=== PATIENT | male | born 2000 | race Caucasian/White ===

== ENCOUNTER 2020-03-27 13:19 | Emergency (ER) | payer MEDICAID, OTHER ==
[~2020-03-27] VITALS: Ht 170 cm; Wt 90.7 kg
[~2020-03-27 13:19] MED LIST: CEPH-506 PO; HYDR-3455 PO; z-pack PO
[2020-03-27 13:39] VITALS: BP 145/89
--- NOTE | 2020-03-27 13:46 | ED Chest Pain ---
General Stated Complaint: HIGH BP - 144/90 Source: patient Exam Limitations: no limitations History of Present Illness Date Seen by Provider: Mar 27, 2020 Time Seen by Provider: 13:40 Initial Comments To ER with reports of high blood pressure. He has had shortness of breath and a cough only upon first awakening in the mornings for the past 1.5 months. No f anibal or chills or headache. He thought that a cigarette and cup of coffee would help because it usually does. He checked his blood pressure and found it to be 144/90, his mother was alarmed and referred him to the emergency room. He has also been under increased stress lately following honorable discharge from the [employer], relationship difficulties and looking for a job. Timing/Duration: constant Severity/Quality: mild Radiation: no radiation Activities at Onset: none ASA po MICA PLATE LAYER: No NTG SL MICA PLATE LAYER: No Allergies and Home Medications Allergies Uncoded Allergies: SHELL FISH (Allergy, Mild, 11/15/14) Home Medications Amlodipine Besylate 2.5 Mg Tablet, 2.5 MG PO DAILY Prescribed by: ANNABELLE KOTHARI on 03/27/20 1347 Cephalexin 250 Mg Capsule, 250 MG PO TID Prescribed by: NOHEMI HERNANDEZ on 06/07/15 1215 Hydrocodone/Acetaminophen 1 Each Tablet, 1 EACH PO Q6H PRN for PAIN Prescribed by: NOHEMI HERNANDEZ on 06/07/15 1212 Pantoprazole Sodium 40 Mg Tablet.dr, 40 MG PO DAILY Prescribed by: ANNABELLE KOTHARI on 03/27/20 1347 Patient Home Medication List Home Medication List Reviewed: Yes Review of Systems Review of Systems Constitutional: see HPI EENTM: No Symptoms Reported Respiratory: See HPI Cardiovascular: See HPI, Chest Pain Gastrointestinal: No Symptoms Reported Genitourinary: No Symptoms Reported Musculoskeletal: no symptoms reported Skin: no symptoms reported Psychiatric/Neurological: No Symptoms Reported Endocrine: No Symptoms Reported Past Ewhopiy-Evuorg-Cfeqtz Hx Patient Social History Recent Foreign Travel: No Contact w/Someone Who Travel: No Seasonal Allergies Seasonal Allergies: No Past Medical History Reproductive Disorders: No Sexually Transmitted Disease: No HIV/AIDS: No Loss of Vision: Denies Hearing Impairment: Denies Adverse Reaction/Blood Tranf: No Physical Exam Vital Signs Vital Signs - First Documented 03/27/20 13:39 Temp 37.0 Pulse 82 Resp 16 B/P (MAP) 145/89 (107) Pulse Ox 100 O2 Delivery Room Air Capillary Refill : Height, Weight, BMI Height: 5'7.00" Weight: 164lbs. oz. 74.850729kd; BMI Method: General Appearance: No Apparent Distress, WD/WN, Obese HEENT: PERRL/EOMI, TMs Normal Neck: Full Range of Motion, Normal Inspection Respiratory: Normal Breath Sounds, No Accessory Muscle Use, No Respiratory Distress Cardiovascular: Regular Rate, Rhythm, Normal Peripheral Pulses Gastrointestinal: Normal Bowel Sounds, Non Tender, Soft Neurologic/Psychiatric: Alert, Oriented x3 Skin: Normal Color, Warm/Dry Progress/Results/Core Measures Results/Orders My Orders Orders - ANNABELLE KOTHARI APRN Ekg Tracing (03/27/20 13:39) Chest Pa/Lat (2 View) (03/27/20 13:39) Vital Signs/I&O 03/27/20 13:39 Temp 37.0 Pulse 82 Resp 16 B/P (MAP) 145/89 (107) Pulse Ox 100 O2 Delivery Room Air Departure Impression Primary Impression: GERD (gastroesophageal reflux disease) Qualified Codes: K21.9 - Gastro-esophageal reflux disease without esophagitis Additional Impressions: Stress Hypertension Qualified Codes: I10 - Essential (primary) hypertension Disposition: 01 HOME, SELF-CARE Condition: Stable Departure-Patient Inst. Decision time for Depature: 13:43 Referrals: YISSEL CENTENO MD,YEMI Justin MD NO,LOCAL PHYSICIAN (PCP) Primary Care Physician RONALDO SHAH CHAD C MD Patient Instructions: Acid Reflux and GERD in Adults (DC), High Blood Pressure (DC) Add. Discharge Instructions: 1. The blood pressure can be controlled by increasing exercise, losing weight, reducing caffeine intake, stop cigarette smoking. I'll give you a one-month prescription for acid reducers which should help the acid reflux that you are experiencing. We will also give him a low-dose blood pressure medication until you can make lifestyle changes (exercise increase, cigarette decrease) as those lifestyle changes will likely result in you not needing medication to control your blood pressure. Call one of the primary care providers listed on Sunday to make an appointment to be seen. Your blood pressure is no where near a dangerous zone but it does warrant treatment at your young age. Scripts Amlodipine Besylate (Amlodipine Besylate) 2.5 Mg Tablet 2.5 MG PO DAILY, #30 TAB Prov: ANNABELLE KOTHARI APRN 03/27/20 Pantoprazole Sodium (Protonix) 40 Mg Tablet.dr 40 MG PO DAILY, #30 TAB Prov: ANNABELLE KOTHARI APRN 03/27/20 ANNABELLE KOTHARI APRN Mar 27, 2020 13:46
[2020-03-27] MEDS ORDERED: AMLO2.5T4 PO (13:47)
[2020-03-27] MEDS ORDERED: PANT40TA2 PO (13:47)
--- NOTE | 2020-03-27 14:31 | Diagnostic Imaging Report ---
Indication: Chest pain with hypertension. Comparison: None. Discussion: Two views of the chest were obtained. Normal heart size. No consolidation, pleural fluid, or pneumothorax. No osseous abnormality. Impression: 1. Negative chest. Dictated by: Dictated on workstation # [id number]
== END 2020-03-27 14:07 | disposition home or self-care (01) ==
LOC: EDUNIT# 13:19 → ER 13:20
DX: K21.9 Gastro-esophageal reflux disease without esophagitis (principal); I10 Essential (primary) hypertension; F43.9 Reaction to severe stress, unspecified; E66.9 Obesity, unspecified; Z68.45 Body mass index [BMI] 70 or greater, adult
CPT/HCPCS: 71046; 93005

== ENCOUNTER 2021-01-01 04:49 | Emergency (ER) | payer SELFPAY ==
[~2021-01-01] VITALS: Ht 170.1 cm; Wt 90.0 kg
[~2021-01-01 04:49] MED LIST changes: +AMLO2.5T4 PO; +PANT40TA2 PO
--- NOTE | 2021-01-01 05:31 | ED General ---
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 Pt states that he went to lay down and drift off to sleep and felt like he was going into a euphoric state. Pt denies alcohol or drug use. Pt denies pain. Pt states that he drank a bunch of coffee at work. 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[employer] STATES HE ATE WHEN HE GOT HOME, AND THEN STARTED FEELING "NOT RIGHT" STATES HE STARTED TO FEEL LIKE HE WAS GOING TO PASS OUT, AND HE FELT LIKE HIS EYES KEPT ROLLING BACK IN HIS HEAD STATES HE FELT LIKE HE COULDN'T BREATHE \\ STATES HE STARTED SHAKING REAL BAD WHEN HE GOT HERE NO CHEST PAIN NO VISION CHANGES NO NAUSEA/VOMITING DENIES FEVER OR RECENT ILLNESS DENIES COUGH PT HAS NOT HAD COVID-19 VACCINE PT NEVER WEARS A MASK AT WORK, NOR ANYWHERE THE [employer] [facility] PT WORKS LIFTED ALL MASK AND SOCIAL DISTANCING RESTRICTIONS SEVERAL MONTHS AGO--BOTH FOR PATRONS AND STAFF. DENIES HISTORY OF SIMILAR DENIES ANY MEDICAL PROBLEMS STATES HE DRANK "A BUNCH" OF COFFEE TODAY--1 1/2 CUPS THIS MORNING, AND 2 CUPS AT WORK. DENIES ANY OTHER STIMULANTS DENIES DRUG USE PT HAS BEEN SEEN HERE FOR ANXIETY IN THE PAST--03/2020, AND WAS NOTED TO HAVE ELEVATED BP AT THAT TIME AND WAS GIVEN RX FOR BLOOD PRESSURE MEDICATION/AMLODIPINE DOES NOT APPEAR THAT PT EVER GOT THOSE PRESCRIPTIONS FILLED, NOR FOLLOWED UP WITH ANYONE PCP: [facility] (ZINA JENNINGS ) Allergies and Home Medications Allergies Uncoded Allergies: SHELL FISH (Allergy, Mild, 11/15/14) Home Medications Amlodipine Besylate 2.5 Mg Tablet, 2.5 MG PO DAILY Prescribed by: ANNABELLE KOTHARI on 03/27/20 1347 Cephalexin 250 Mg Capsule, 250 MG PO TID Prescribed by: NOHEMI HERNANDEZ on 06/07/15 1215 Hydrocodone/Acetaminophen 1 Each Tablet, 1 EACH PO Q6H PRN for PAIN Prescribed by: NOHEMI HERNANDEZ on 06/07/15 1212 Pantoprazole Sodium 40 Mg Tablet.dr, 40 MG PO DAILY Prescribed by: ANNABELLE KOTHARI on 03/27/20 1347 Patient Home Medication List Home Medication List Reviewed: Yes (XIOMARA ANTOINE MD) Review of Systems Review of Systems Constitutional: see HPI, dizziness EENTM: no symptoms reported Respiratory: see HPI Cardiovascular: no symptoms reported Gastrointestinal: no symptoms reported Genitourinary: no symptoms reported Musculoskeletal: no symptoms reported Skin: no symptoms reported Psychiatric/Neurological: See HPI, Anxiety Hematologic/Lymphatic: No Symptoms Reported Immunological/Allergic: no symptoms reported (ZINA JENNINGS DO) Past Mxswyjv-Gpdzgz-Ijwath Hx Patient Social History Tobacco Use?: Yes (SMOKED 1/2 PPD, QUIT RECENTLY) Tobacco type used: Cigarettes Smoking Status: Former Smoker Use of E-Cig and/or Vaping dev: Yes E-Cig or Vaping type used: Nicotine Use of E-Cig and/or Vaping Rolf: Former User Substance use?: Yes (USE MARIJUANA "ONE TIME" ) Substance type: Marijuana Alcohol Use?: No Pt feels they are or have been: No (ZINA JENNINGS DO) Immunizations Up To Date Influenza Vaccine Up-to-Date: No; Not Current (ZINA JENNINGS DO) Seasonal Allergies Seasonal Allergies: No (ZINA JENNINGS DO) Past Medical History Surgery/Hospitalization HX: INGUINAL HERNIA REPAIR X 2 Surgeries: Yes (inguinal hernias x2) Abdominal Respiratory: No Cardiac: Yes (HAS HAD ELEVATED BP IN ER AND BEEN PRESCRIBED MEDS, BUT DID NOT TAKE OR F/U) Neurological: No Reproductive Disorders: No Genitourinary: No Gastrointestinal: No Musculoskeletal: No Endocrine: No Loss of Vision: Denies Hearing Impairment: Denies Cancer: No Psychosocial: Yes Anxiety Integumentary: Yes (R ring finger lesion) Blood Disorders: No Adverse Reaction/Blood Tranf: No (ZINA JENNINGS DO) Physical Exam Vital Signs Vital Signs - First Documented 01/01/21 05:05 Temp 36.4 Pulse 134 Resp 24 B/P (MAP) 195/118 (143) Pulse Ox 98 O2 Delivery Room Air (XIOMARA ANTOINE MD) Vital Signs Capillary Refill : Less Than 3 Seconds (JOSE MIGUEL JENNINGSA Pino HYMAN) Height, Weight, BMI Height: 5'7.00" Weight: 164lbs. oz. 74.473796po; 31.00 BMI Method: General Appearance: No Apparent Distress, WD/WN, Anxious Neck: Normal Inspection Respiratory: Normal Breath Sounds, No Accessory Muscle Use, No Respiratory Distress Cardiovascular: No Edema, No Gallop, No JVD, No Murmur, Normal Peripheral Pulses, Tachycardia Gastrointestinal: Soft Extremity: Normal Inspection Neurologic/Psychiatric: Alert, Oriented x3, No Motor/Sensory Deficits, food concession manager II- XII Norm as Tested, Other (VERY ANXIOUS) Skin: Normal Color, Warm/Dry, Tattoos/Piercings (TATTOOS) (MICHAELAZINAAlvin Pringle DO) Progress/Results/Core Measures Suspected Sepsis SIRS Temperature: Pulse: 134 Respiratory Rate: 24 Laboratory Tests 01/01/21 05:20: White Blood Count 8.4 Blood Pressure 195 /118 Mean: 143 Laboratory Tests 01/01/21 05:20: Platelet Count 230, Total Bilirubin 0.7 (MICHAELAZINA Pino HYMAN) Results/Orders Lab Results Laboratory Tests Test 01/01/21 05:20 01/01/21 05:57 Range/Units White Blood Count 8.4 4.3-11.0 10^3/uL Red Blood Count 5.18 4.30-5.52 10^6/uL Hemoglobin 16.0 13.3-17.7 g/dL Hematocrit 45 40-54 % Mean Corpuscular Volume 86 80-99 fL Mean Corpuscular Hemoglobin 31 25-34 pg Mean Corpuscular Hemoglobin Concent 36 32-36 g/dL Red Cell Distribution Width 11.9 10.0-14.5 % Platelet Count 230 130-400 10^3/uL Mean Platelet Volume 10.3 9.0-12.2 fL Immature Granulocyte % (Auto) 1 % Neutrophils (%) (Auto) 42 42-75 % Lymphocytes (%) (Auto) 49 H 12-44 % Monocytes (%) (Auto) 5 0-12 % Eosinophils (%) (Auto) 3 0-10 % Basophils (%) (Auto) 1 0-10 % Neutrophils # (Auto) 3.5 1.8-7.8 10^3/uL Lymphocytes # (Auto) 4.1 H 1.0-4.0 10^3/uL Monocytes # (Auto) 0.4 0.0-1.0 10^3/uL Eosinophils # (Auto) 0.3 0.0-0.3 10^3/uL Basophils # (Auto) 0.1 0.0-0.1 10^3/uL Immature Granulocyte # (Auto) 0.0 0.0-0.1 10^3/uL Sodium Level 137 135-145 MMOL/L Potassium Level 3.5 L 3.6-5.0 MMOL/L Chloride Level 102 98-107 MMOL/L Carbon Dioxide Level 23 21-32 MMOL/L Anion Gap 12 5-14 MMOL/L Blood Urea Nitrogen 15 7-18 MG/DL Creatinine 1.28 0.60-1.30 MG/DL Estimat Glomerular Filtration Rate 70 BUN/Creatinine Ratio 12 Glucose Level 157 H 70-105 MG/DL Calcium Level 9.6 8.5-10.1 MG/DL Corrected Calcium 8.5-10.1 MG/DL Magnesium Level 1.9 1.6-2.4 MG/DL Total Bilirubin 0.7 0.1-1.0 MG/DL Aspartate Amino Transf (AST/SGOT) 48 H 5-34 U/L Alanine Aminotransferase (ALT/SGPT) 132 H 0-55 U/L Alkaline Phosphatase 64 40-136 U/L B-Type Natriuretic Peptide < 10.0 <100.0 PG/ML Total Protein 8.2 6.4-8.2 GM/DL Albumin 4.6 H 3.2-4.5 GM/DL TSH Eddy Testing 2.88 0.35-4.94 UIU/ML Serum Alcohol < 10 <10 MG/DL SARS-CoV-2 RNA (RT-PCR) Not Detected Not Detecte Urine Opiates Screen NEGATIVE NEGATIVE Urine Oxycodone Screen NEGATIVE NEGATIVE Urine Methadone Screen NEGATIVE NEGATIVE Urine Propoxyphene Screen NEGATIVE NEGATIVE Urine Barbiturates Screen NEGATIVE NEGATIVE Ur Tricyclic Antidepressants Screen NEGATIVE NEGATIVE Urine Phencyclidine Screen NEGATIVE NEGATIVE Urine Amphetamines Screen NEGATIVE NEGATIVE Urine Methamphetamines Screen NEGATIVE NEGATIVE Urine Benzodiazepines Screen NEGATIVE NEGATIVE Urine Cocaine Screen NEGATIVE NEGATIVE Urine Cannabinoids Screen NEGATIVE NEGATIVE (XIOMARA ANTOINE MD) Vital Signs/I&O 01/01/21 05:05 Temp 36.4 Pulse 134 Resp 24 B/P (MAP) 195/118 (143) Pulse Ox 98 O2 Delivery Room Air (XIOMARA ANTOINE MD) Vital Signs/I&O Capillary Refill : Less Than 3 Seconds (ZINA JENNINGS DO) Blood Pressure Mean: 143 Progress Note : Progress Note PLACED IN ISOLATION ROOM PPE WORN COVID-19 TESTING PERFORMED DISCUSSED THE IMPORTANCE OF WEARING A MASK ANY TIME HE LEAVES HIS HOUSE, AND ESPECIALLY WHEN HE IS AT WORK (ZINA JENNINGS DO) Progress Note : Time: 06:54 Progress Note Work-up was unremarkable. Vital signs are now normal. Patient is feeling improved. He does not have a primary care provider. I have advised him to seek a primary care provider soon as possible. We also discussed the potential for taking a beta-neli such as propranolol to help prevent and treat tachycardia and anxiety. He declines at this time and would like to speak with a primary care provider first. (XIOMARA ANTOINE MD) ECG Initial ECG Impression Date: Jan 01, 2021 Initial ECG Impression Time: 05:05 Initial ECG Rate: 125 Initial ECG Rhythm: S.Tach (ZINA JENNINGS DO) Diagnostic Imaging Comments CXR-- Reviewed: Reviewed by Me (ZINA JENNINGS DO) Departure Impression Primary Impression: Anxiety Additional Impression: Episode of hypertension Disposition: 01 HOME, SELF-CARE Condition: Improved Departure-Patient Inst. Decision time for Depature: 07:00 (XIOMARA ANTOINE MD) Referrals: YISSEL CENTENO MD [facility] BENSON MD, DANIEL J MD NO,LOCAL PHYSICIAN (PCP) Primary Care Physician RONALDO SHAH CHAD C MD Patient Instructions: Anxiety, Adult ED, Supraventricular Tachycardia (SVT) Add. Discharge Instructions: The exact cause of your symptoms is uncertain but your work-up in the emergency room did not reveal any major immediate concerns. Possible causes of your symptoms could be abnormal heart rhythms such as SVT, anxiety, excessive stimulant use, etc. Follow-up with a primary care provider soon as possible. Drink plenty of clear liquids to stay well-hydrated. Avoid stimulants that can cause high heart rate and anxiety such as caffeine, energy drinks, decongestant medications, ADD medications, illicit drugs, workout supplements, diet pills, etc. Establish with a primary care provider soon as possible. Discuss further work- up with a primary care provider which might include heart monitoring or other lab work. Call with questions or concerns. Return to the ER if you have worsening symptoms again. All discharge instructions reviewed with patient and/or family. Voiced understanding. ZINA JENNINGS DO Jan 01, 2021 05:31 XIOMARA ANTOINE MD Jan 01, 2021 06:59
[2021-01-01 05:33] LABS: BASOPHILS # (AUTO) 0.1 10^3/uL (0.0-0.1); BASOPHILS % (AUTO) 1 % (0-10); EOSINOPHILS # (AUTO) 0.3 10^3/uL (0.0-0.3); EOSINOPHILS % (AUTO) 3 % (0-10); HEMATOCRIT 45 % (40-54); LYMPHOCYTES # (AUTO) 4.1 10^3/uL (1.0-4.0); LYMPHOCYTES % (AUTO) 49 % (12-44); MEAN CORPUSCULAR HEMOGLOBIN 31 pg (25-34); MEAN CORPUSCULAR HGB CONC 36 g/dL (32-36); MEAN CORPUSCULAR VOLUME 86 fL (80-99); MEAN PLATELET VOLUME 10.3 fL (9.0-12.2); MONOCYTES # (AUTO) 0.4 10^3/uL (0.0-1.0); MONOCYTES % (AUTO) 5 % (0-12); NEUTROPHILS # (AUTO) 3.5 10^3/uL (1.8-7.8); NEUTROPHILS % (AUTO) 42 % (42-75); PLATELET COUNT 230 10^3/uL (130-400); WHITE BLOOD COUNT 8.4 10^3/uL (4.3-11.0)
[2021-01-01 05:44] LABS: ALBUMIN 4.6 GM/DL (3.2-4.5); CHLORIDE 102 MMOL/L (98-107); POTASSIUM 3.5 MMOL/L (3.6-5.0); SODIUM 137 MMOL/L (135-145)
[2021-01-01 05:45] LABS: CALCIUM 9.6 MG/DL (8.5-10.1)
[2021-01-01 05:46] LABS: GLUCOSE 157 MG/DL (70-105)
[2021-01-01 05:47] LABS: CARBON DIOXIDE 23 MMOL/L (21-32); TOTAL PROTEIN 8.2 GM/DL (6.4-8.2)
[2021-01-01 05:48] LABS: BILIRUBIN,TOTAL 0.7 MG/DL (0.1-1.0)
[2021-01-01 05:50] LABS: ALKALINE PHOSPHATASE 64 U/L (40-136); CREATININE SERUM 1.28 MG/DL (0.60-1.30); GFR ESTIMATED 70
[2021-01-01 05:51] LABS: BUN/CREATININE RATIO 12
[2021-01-01 05:53] LABS: ALANINE AMINOTRANSFERASE 132 U/L (0-55); MAGNESIUM 1.9 MG/DL (1.6-2.4)
[2021-01-01 06:13] LABS: TSH (THYROID ANALYZER) 2.88 UIU/ML (0.35-4.94)
[2021-01-01 06:21] LABS: AMPHETAMINE SCREEN, URINE NEGATIVE (NEGATIVE); BARBITURATE SCREEN URINE NEGATIVE (NEGATIVE); BENZODIAZEPINES SCREEN URINE NEGATIVE (NEGATIVE); CANNABINOID SCREEN, URINE NEGATIVE (NEGATIVE); COCAINE SCREEN URINE NEGATIVE (NEGATIVE); METHADONE STAT NEGATIVE (NEGATIVE); METHAMPHETAMINE SCREEN URINE S NEGATIVE (NEGATIVE); OPIATE SCREEN URINE NEGATIVE (NEGATIVE); OXYCODONE STAT NEGATIVE (NEGATIVE); PROPOXYPHENE STAT NEGATIVE (NEGATIVE); TRICYCLIC ANTIDEPRESSANTS SCRE NEGATIVE (NEGATIVE)
--- NOTE | 2021-01-01 06:46 | Diagnostic Imaging Report ---
INDICATION: Hypertensive patient with dyspnea COMPARISON: 03/27/2020 Heart, lungs, jackie, mediastinum and pleura all appeared normal. IMPRESSION: Negative. Dictated by: Dictated on workstation # [id number]
[2021-01-01 07:11] VITALS: BP 135/84
== END 2021-01-01 07:13 | disposition home or self-care (01) ==
LOC: EDUNIT# 04:49 → ER 04:55
DX: F41.9 Anxiety disorder, unspecified (principal); R03.0 Elevated blood-pressure reading, without diagnosis of hypertension; Z87.891 Personal history of nicotine dependence; Z20.822 Contact with and (suspected) exposure to COVID-19
CPT/HCPCS: 71045; 80053; 80306; 83735; 83880; 84443; 85025; 87636; 93005; 99284; G0480; 36415; 80320

== ENCOUNTER 2021-01-05 09:12 | Emergency (ER) | payer SELFPAY ==
[~2021-01-05] VITALS: Ht 170 cm; Wt 90.7 kg
[2021-01-05] MEDS ORDERED: ONDANSETRON 4 MG (ZOFRAN) ORAL DISSOLVE TAB SL ONE (10:00)
[2021-01-05] MEDS ORDERED: hydrOXYzine (VISTARIL/ATARAX) 25 MG capsule/tablet PO ONE (10:00)
[2021-01-05] MEDS ORDERED: PROPRANOLOL 20 MG (INDERAL) TABLET PO ONE (10:00)
[2021-01-05] MEDS ORDERED: ONDA4TAB11 SL (10:05)
[2021-01-05] MEDS ORDERED: HYDR-700 PO (10:05)
[2021-01-05] MEDS ORDERED: PROP40TA5 PO (10:05)
--- NOTE | 2021-01-05 10:05 | ED General ---
General Chief Complaint: General Problems/Pain Stated Complaint: DIZZINESS;ANXIETY Nursing Triage Note: PT AMB TO RM 7 W C/O "FEELING FUNNY" SINCE 0030 THIS AM. PT STATES HE'S BEEN DIZZY WITH N/V. DENIES CHEST PAIN, REPORTS WEIRD FEELING IN CHEST. DENIES TAKING ANYTHING TO RELIEVE DISCOMFORT. PT REPORTS THAT HE HAS ANXIETY. Source of Information: Patient Exam Limitations: No Limitations History of Present Illness Date Seen by Provider: Jan 05, 2021 Time Seen by Provider: 09:29 Initial Comments This patient presents to the emergency room with symptoms that started while he was at work last night. He developed rapid heart rate, nausea and vomiting, and tremors. He had been seen in the ER for a similar episode 4 days ago. Work-up was unremarkable at that time. Patient is feeling improved now but still has some mild lingering nausea and some occasional shivers or tremors. Patient does have some anxiety problems. 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 He also has had increased stress at work with increased workload and hours recently. He reports quitting smoking about 2 weeks ago and quitting coffee consumption about 4 days ago. He denies any other stimulant use, alcohol use, or drug use. Allergies and Home Medications Allergies Uncoded Allergies: SHELL FISH (Allergy, Mild, 11/15/14) Home Medications Amlodipine Besylate 2.5 Mg Tablet, 2.5 MG PO DAILY Prescribed by: ANNABELLE KOTHARI on 03/27/20 1347 Cephalexin 250 Mg Capsule, 250 MG PO TID Prescribed by: NOHEMI HERNANDEZ on 06/07/15 1215 Hydrocodone/Acetaminophen 1 Each Tablet, 1 EACH PO Q6H PRN for PAIN Prescribed by: NOHEMI HERNANDEZ on 06/07/15 1212 Hydroxyzine HCl 25 Mg Tablet, 25 MG PO QID PRN for ANXIETY Prescribed by: XIOMARA ESCAMILLA on 01/05/21 1005 Ondansetron 4 Mg Tab.rapdis, 4 MG SL Q4H PRN for NAUSEA/VOMITING Prescribed by: XIOMARA ESCAMILLA on 01/05/21 1005 Pantoprazole Sodium 40 Mg Tablet.dr, 40 MG PO DAILY Prescribed by: ANNABELLE KOTHARI on 03/27/20 1347 Propranolol HCl 40 Mg Tablet, 40 MG PO BID Prescribed by: XIOMARA ESCAMILLA on 01/05/21 1005 Patient Home Medication List Home Medication List Reviewed: Yes Review of Systems Review of Systems Constitutional: no symptoms reported EENTM: no symptoms reported Respiratory: no symptoms reported Cardiovascular: see HPI Gastrointestinal: see HPI Genitourinary: no symptoms reported Musculoskeletal: no symptoms reported Skin: no symptoms reported Psychiatric/Neurological: See HPI Hematologic/Lymphatic: No Symptoms Reported Immunological/Allergic: no symptoms reported Past Qtnyrjh-Tpfqhd-Qjhhup Hx Patient Social History Tobacco Use?: No Smoking Status: Former Smoker Substance use?: No Alcohol Use?: No Pt feels they are or have been: No Seasonal Allergies Seasonal Allergies: No Past Medical History Surgery/Hospitalization HX: INGUINAL HERNIA REPAIR X 2 Surgeries: Yes (inguinal hernias x2) Abdominal Respiratory: No Cardiac: Yes (HAS HAD ELEVATED BP IN ER AND BEEN PRESCRIBED MEDS, BUT DID NOT TAKE OR F/U) Neurological: No Reproductive Disorders: No Genitourinary: No Gastrointestinal: No Musculoskeletal: No Endocrine: No Loss of Vision: Denies Hearing Impairment: Denies Cancer: No Psychosocial: Yes Anxiety, PTSD Integumentary: Yes (R ring finger lesion) Blood Disorders: No Adverse Reaction/Blood Tranf: No Physical Exam Vital Signs Vital Signs - First Documented 01/05/21 09:20 Temp 36.7 Pulse 105 Resp 22 B/P (MAP) 156/83 (107) Pulse Ox 97 O2 Delivery Room Air Capillary Refill : Less Than 3 Seconds Height, Weight, BMI Height: 5'7.00" Weight: 164lbs. oz. 74.143295pv; 31.00 BMI Method: General Appearance: No Apparent Distress, WD/WN, Anxious HEENT: PERRL/EOMI, Normal ENT Inspection Neck: Normal Inspection Respiratory: Lungs Clear, Normal Breath Sounds, No Accessory Muscle Use Cardiovascular: Regular Rate, Rhythm, No Edema, No Murmur Extremity: Normal Inspection, No Pedal Edema Neurologic/Psychiatric: Alert, Oriented x3, No Motor/Sensory Deficits, inspector line II- XII Norm as Tested, Other (Anxious mood, avoids eye contact, no expression of suicidal ideation) Skin: Normal Color, Warm/Dry Progress/Results/Core Measures Suspected Sepsis SIRS Temperature: Pulse: 105 Respiratory Rate: 22 Blood Pressure 156 /83 Mean: 107 Results/Orders My Orders Orders - XIOMARA ANTOINE MD Ekg Tracing (01/05/21 09:29) Monitor-Rhythm Ecg Trace Only (01/05/21 09:29) Hydroxyzine Cap/Tab (Vistaril) (01/05/21 10:00) Propranolol Tablet (Inderal Tablet) (01/05/21 10:00) Ondansetron Oral Dissolve Tab (Zofran (01/05/21 10:00) Medications Given in ED Current Medications Medications Dose Ordered Sig/Grant Route Start Time Stop Time Status Last Admin Dose Admin Hydroxyzine Pamoate 25 mg ONCE ONCE PO 01/05/21 10:00 01/05/21 10:01 DC 01/05/21 10:20 25 MG Ondansetron HCl 4 mg ONCE ONCE SL 01/05/21 10:00 01/05/21 10:01 DC 01/05/21 10:21 4 MG Propranolol HCl 40 mg ONCE ONCE PO 01/05/21 10:00 01/05/21 10:01 DC 01/05/21 10:20 40 MG Vital Signs/I&O 01/05/21 01/05/21 09:20 10:18 Temp 36.7 Pulse 105 94 Resp 22 18 B/P (MAP) 156/83 (107) 144/91 Pulse Ox 97 98 O2 Delivery Room Air Room Air Capillary Refill : Less Than 3 Seconds Blood Pressure Mean: 107 Progress Note : Progress Note Seems patient's symptoms may be multifactorial. Causes of tachycardia should be ruled out with cardiac monitoring and further evaluation by a primary care provider. He was encouraged to establish with a PCP as soon as possible. Anxiety may be exacerbated by stress at work. He also has history of PTSD. These may be contributing factors as well. I advised him to have the cardiac monitoring performed to rule out a physical cause for his symptoms. He was previously offered propranolol to help with his symptoms. He declined at that time but would like to try it now. He would also like to try hydroxyzine to help abort acute episodes. Both of these medicines were administered in the ER and prescribed. Zofran is also being given for nausea. He was advised these were temporizing measures to help control symptoms while he gets established with primary care and behavioral health services. ECG Initial ECG Impression Date: Jan 05, 2021 Initial ECG Impression Time: 09:23 Initial ECG Rate: 94 Initial ECG Rhythm: Normal Sinus Initial ECG Intervals: Normal Initial ECG Impression: Normal Comment Normal sinus rhythm with no ST elevation or depression. No abnormal intervals or axis deviation. Departure Impression Primary Impression: Anxiety Additional Impressions: Tachycardia Nausea and vomiting Qualified Codes: R11.2 - Nausea with vomiting, unspecified Disposition: HOME, SELF-CARE Condition: Improved Departure-Patient Inst. Decision time for Depature: 10:01 Referrals: NO,LOCAL PHYSICIAN (PCP/Family) Primary Care Physician Patient Instructions: Tachycardia Add. Discharge Instructions: The exact cause of your symptoms is uncertain. It may be related to anxiety or a rhythm issue such as SVT. If an episode happens again, it may be helpful to measure your heart rate with a device such as a apple watch, pulse oximeter, etc. and log the heart rate for future reference with a healthcare provider. Use propranolol as prescribed to prevent these episodes and reduce intensity. Use hydroxyzine for acute episodes to help calm me down. Use Zofran (ondansetron) dissolved under the tongue every 4 hours as needed for nausea and vomiting. Follow-up with a primary care provider soon as possible. Also consider following up with a behavioral health provider to discuss issues of anxiety, PTSD, etc. All discharge instructions reviewed with patient and/or family. Voiced understanding. Scripts Ondansetron (Ondansetron Odt) 4 Mg Tab.rapdis 4 MG SL Q4H PRN for NAUSEA/VOMITING, #10 TAB Prov: XIOMARA ANTOINE MD 01/05/21 Hydroxyzine HCl (Hydroxyzine HCl) 25 Mg Tablet 25 MG PO QID PRN for ANXIETY, #10 TAB Prov: XIOMARA ANTOINE MD 01/05/21 Propranolol HCl (Propranolol HCl) 40 Mg Tablet 40 MG PO BID, #60 TAB Prov: XIOMARA ANTOINE MD 01/05/21 XIOMARA ANTOINE MD Jan 05, 2021 10:05
[2021-01-05 10:18] VITALS: BP 144/91
== END 2021-01-05 10:18 | disposition home or self-care (01) ==
LOC: EDUNIT# 09:12 → ER 09:14
DX: F41.9 Anxiety disorder, unspecified (principal); R11.2 Nausea with vomiting, unspecified; F43.10 Post-traumatic stress disorder, unspecified; Z87.891 Personal history of nicotine dependence; Z79.899 Other long term (current) drug therapy
CPT/HCPCS: 93005; 93041

== ENCOUNTER 2021-10-22 13:22 | Emergency (ER) | payer SELFPAY ==
[~2021-10-22] VITALS: Ht 172.7 cm; Wt 100.0 kg
[~2021-10-22 13:22] MED LIST changes: +HYDR-700 PO; +ONDA4TAB11 SL; +PROP40TA5 PO
[2021-10-22] MEDS ORDERED: NS IV 1000 ML 1,000 ML IV ONE ×2 (14:15→16:15)
[2021-10-22 14:21] LABS: BENZODIAZEPINES SCREEN URINE NEGATIVE (NEGATIVE)
[2021-10-22 14:22] LABS: AMPHETAMINE SCREEN, URINE NEGATIVE (NEGATIVE); BARBITURATE SCREEN URINE NEGATIVE (NEGATIVE); CANNABINOID SCREEN, URINE POSITIVE (NEGATIVE); COCAINE SCREEN URINE NEGATIVE (NEGATIVE); METHADONE STAT NEGATIVE (NEGATIVE); OPIATE SCREEN URINE NEGATIVE (NEGATIVE); OXYCODONE STAT NEGATIVE (NEGATIVE); PROPOXYPHENE STAT NEGATIVE (NEGATIVE); TRICYCLIC ANTIDEPRESSANTS SCRE NEGATIVE (NEGATIVE)
[2021-10-22 14:24] LABS: BASOPHILS # (AUTO) 0.1 10^3/uL (0.0-0.1); BASOPHILS % (AUTO) 1 % (0-10); EOSINOPHILS # (AUTO) 0.1 10^3/uL (0.0-0.3); EOSINOPHILS % (AUTO) 1 % (0-10); HEMATOCRIT 49 % (40-54); HEMOGLOBIN 17.4 g/dL (13.3-17.7); LYMPHOCYTES # (AUTO) 2.6 10^3/uL (1.0-4.0); LYMPHOCYTES % (AUTO) 30 % (12-44); MEAN CORPUSCULAR HEMOGLOBIN 31 pg (25-34); MEAN CORPUSCULAR HGB CONC 36 g/dL (32-36); MEAN CORPUSCULAR VOLUME 86 fL (80-99); MEAN PLATELET VOLUME 10.4 fL (9.0-12.2); MONOCYTES # (AUTO) 0.5 10^3/uL (0.0-1.0); MONOCYTES % (AUTO) 6 % (0-12); NEUTROPHILS # (AUTO) 5.5 10^3/uL (1.8-7.8); NEUTROPHILS % (AUTO) 62 % (42-75); PLATELET COUNT 254 10^3/uL (130-400); WHITE BLOOD COUNT 8.8 10^3/uL (4.3-11.0)
[2021-10-22 14:37] LABS: ALBUMIN 4.8 GM/DL (3.2-4.5); CHLORIDE 103 MMOL/L (98-107); SODIUM 138 MMOL/L (135-145)
[2021-10-22 14:38] LABS: CALCIUM 10.2 MG/DL (8.5-10.1)
[2021-10-22 14:39] LABS: GLUCOSE 205 MG/DL (70-105)
[2021-10-22 14:40] LABS: TOTAL PROTEIN 8.4 GM/DL (6.4-8.2)
[2021-10-22 14:41] LABS: BILIRUBIN,TOTAL 0.5 MG/DL (0.1-1.0); CARBON DIOXIDE 22 MMOL/L (21-32)
[2021-10-22 14:43] LABS: ALKALINE PHOSPHATASE 63 U/L (40-136); CREATININE SERUM 1.24 MG/DL (0.60-1.30); GFR ESTIMATED 84
[2021-10-22 14:44] LABS: BUN/CREATININE RATIO 12
[2021-10-22 14:46] LABS: ALANINE AMINOTRANSFERASE 108 U/L (0-55)
[2021-10-22 15:06] LABS: TSH (THYROID ANALYZER) 0.77 UIU/ML (0.35-4.94)
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
[2021-10-22 17:00] VITALS: BP 139/78
== END 2021-10-22 17:00 | disposition home or self-care (01) ==
LOC: EDUNIT# 13:22 → ER 13:23
DX: F12.920 Cannabis use, unspecified with intoxication, uncomplicated (principal)
CPT/HCPCS: 36415; 80053; 80306; 84443; 85025; 93005

== ENCOUNTER 2022-09-15 21:56 | Emergency (ER) | payer SELFPAY ==
[~2022-09-15] VITALS: Ht 172.7 cm; Wt 100.0 kg
[2022-09-15] MEDS ORDERED: NS IV 1000 ML 1,000 ML IV STA (22:44)
--- NOTE | 2022-09-15 22:52 | ED GI ---
General Chief Complaint: Abdominal/GI Problems Stated Complaint: BLOOD IN STOOL Nursing Triage Note: PT AMB TO [facility] 5 WITH C/O BLOOD IN STOOL AND BROWN URINE TODAY. PT ALSO C/O R SIDE PAIN. PT DENIES ANY INJURY AND DENIES OF EVER HAVING THIS HAPPEN BEFORE Source of Information: Patient Exam Limitations: No Limitations History of Present Illness Date Seen by Provider: Sep 15, 2022 Time Seen by Provider: 22:30 Initial Comments Here with report of blood in stool. He is not able to quantify how much as the toilet had automatic flush but he did note some redness to the stool. Also reports darker urine today. Complains of some suprapubic intermittent tenderness that is not significant currently. Denies nausea or vomiting. Denies fever or chills. He has never had anything like this before. He does report that he did have approximately 1 month of diarrhea related to a specific type of gum he was chewing and then he stopped chewing that got and it went away. He states that he drank quite a bit of water today and overall is not having any complaint and is mostly just concerned about the stool. Denies any recent injury. He has not had a colonoscopy. Denies hemorrhoids. Timing/Duration: 1-3 Hours Severity/Quality: Mild, Aching Location: Suprapubic Radiation: No Radiation Activities at Onset: None Modifying Factors: Improves With Defecating Associated Symptoms: No Back Pain, No Chest Pain, No Fever/Chills, No Fatigue, No Nausea/Vomiting, No Shortness of Air, No Weakness Allergies and Home Medications Allergies Uncoded Allergies: SHELL FISH (Allergy, Mild, 11/15/14) Patient Home Medication List Home Medication List Reviewed: Yes Amlodipine Besylate (Amlodipine Besylate) 2.5 Mg Tablet, 2.5 MG PO DAILY Prescribed by: ANNABELLE KOTHARI on 03/27/20 1347 Cephalexin (Keflex) 250 Mg Capsule, 250 MG PO TID Prescribed by: NOHEMI HERNANDEZ on 06/07/15 1215 Hydrocodone/Acetaminophen (Vicodin 5-300 mg Tablet) 1 Each Tablet, 1 EACH PO Q6H PRN for PAIN Prescribed by: NOHEMI HERNANDEZ on 06/07/15 1212 Hydroxyzine HCl (Hydroxyzine HCl) 25 Mg Tablet, 25 MG PO QID PRN for ANXIETY Prescribed by: XIOMARA ESCAMILLA on 01/05/21 1005 Ondansetron (Ondansetron Odt) 4 Mg Tab.rapdis, 4 MG SL Q4H PRN for NAUSEA/VOMIT ING Prescribed by: XIOMARA ESCAMILLA on 01/05/21 1005 Pantoprazole Sodium (Protonix) 40 Mg Tablet.dr, 40 MG PO DAILY Prescribed by: ANNABELLE KOTHARI on 03/27/20 1347 Propranolol HCl (Propranolol HCl) 40 Mg Tablet, 40 MG PO BID Prescribed by: XIOMARA ESCAMILLA on 01/05/21 1005 Review of Systems Review of Systems Constitutional: see HPI; No chills, No fever EENTM: No Symptoms Reported Respiratory: Denies Cough, Denies Shortness of Air Cardiovascular: No Symptoms Reported Gastrointestinal: See HPI Genitourinary: See HPI; Denies Burning, Denies Flank Pain Musculoskeletal: no symptoms reported Skin: no symptoms reported Past Ecqlqtx-Dcxjpv-Zsszlg Hx Patient Social History Tobacco Use?: No Smoking Status: Former Smoker Substance use?: No Alcohol Use?: Yes Alcohol Frequency: Rarely Pt feels they are or have been: No Immunizations Up To Date Influenza Vaccine Up-to-Date: Yes; Up-to-Date Seasonal Allergies Seasonal Allergies: No Past Medical History Surgery/Hospitalization HX: INGUINAL HERNIA REPAIR X 2 Surgeries: Yes (inguinal hernias x2) Abdominal Respiratory: No Cardiac: Yes (HAS HAD ELEVATED BP IN ER AND BEEN PRESCRIBED MEDS, BUT DID NOT TAKE OR F/U) Neurological: No Reproductive Disorders: No Genitourinary: No Gastrointestinal: No Musculoskeletal: No Endocrine: No Loss of Vision: Denies Hearing Impairment: Denies Cancer: No Psychosocial: Yes Anxiety, PTSD Integumentary: Yes (R ring finger lesion) Blood Disorders: No Adverse Reaction/Blood Tranf: No Family Medical History Reviewed Nursing Family Hx No Pertinent Family Hx Physical Exam Vital Signs Vital Signs - First Documented 09/15/22 22:06 Pulse 72 Resp 17 B/P (MAP) 158/94 (115) Capillary Refill : Height/Weight/BMI Height: 5'7.00" Weight: 164lbs. oz. [id number]; 33.00 BMI Method: General Appearance: WD/WN, no apparent distress HEENT: PERRL/EOMI, pharynx normal Neck: full range of motion, supple Respiratory: lungs clear, normal breath sounds Cardiovascular: regular rate, rhythm, no murmur Gastrointestinal: normal bowel sounds, non tender, soft, no organomegaly, no pulsatile mass Rectal: normal rectal tone, heme positive stool (Trace); No hemorrhoids, No mass, No tenderness; other (Externally there appeared to be trace amounts of blood but unknown source. Rectal exam revealed brown stool without gross blood) Extremities: non-tender, normal inspection Back: normal inspection, no CVA tenderness, no vertebral tenderness Neurologic/Psychiatric: alert, oriented x 3 Skin: normal color, warm/dry Progress/Results/Core Measures Results/Orders Lab Results Laboratory Tests Test 09/15/22 22:47 09/15/22 23:30 Range/Units White Blood Count 7.0 4.3-11.0 10^3/uL Red Blood Count 5.12 4.30-5.52 10^6/uL Hemoglobin 15.6 13.3-17.7 g/dL Hematocrit 43 40-54 % Mean Corpuscular Volume 84 80-99 fL Mean Corpuscular Hemoglobin 31 25-34 pg Mean Corpuscular Hemoglobin Concent 36 32-36 g/dL Red Cell Distribution Width 11.9 10.0-14.5 % Platelet Count 214 130-400 10^3/uL Mean Platelet Volume 10.1 9.0-12.2 fL Immature Granulocyte % (Auto) 0 % Neutrophils (%) (Auto) 40 L 42-75 % Lymphocytes (%) (Auto) 49 H 12-44 % Monocytes (%) (Auto) 7 0-12 % Eosinophils (%) (Auto) 3 0-10 % Basophils (%) (Auto) 1 0-10 % Neutrophils # (Auto) 2.8 1.8-7.8 10^3/uL Lymphocytes # (Auto) 3.5 1.0-4.0 10^3/uL Monocytes # (Auto) 0.5 0.0-1.0 10^3/uL Eosinophils # (Auto) 0.2 0.0-0.3 10^3/uL Basophils # (Auto) 0.1 0.0-0.1 10^3/uL Immature Granulocyte # (Auto) 0.0 0.0-0.1 10^3/uL Sodium Level 139 135-145 MMOL/L Potassium Level 4.0 3.6-5.0 MMOL/L Chloride Level 106 98-107 MMOL/L Carbon Dioxide Level 24 21-32 MMOL/L Anion Gap 9 5-14 MMOL/L Blood Urea Nitrogen 16 7-18 MG/DL Creatinine 1.18 0.60-1.30 MG/DL Estimat Glomerular Filtration Rate 88 BUN/Creatinine Ratio 14 Glucose Level 96 70-105 MG/DL Calcium Level 9.6 8.5-10.1 MG/DL Corrected Calcium 8.5-10.1 MG/DL Total Bilirubin 0.6 0.1-1.0 MG/DL Aspartate Amino Transf (AST/SGOT) 56 H 5-34 U/L Alanine Aminotransferase (ALT/SGPT) 156 H 0-55 U/L Alkaline Phosphatase 57 40-136 U/L C-Reactive Protein High Sensitivity 0.28 0.00-0.50 MG/DL Total Protein 7.7 6.4-8.2 GM/DL Albumin 4.7 H 3.2-4.5 GM/DL Urine Color YELLOW Urine Clarity CLEAR Urine pH 6.0 5-9 Urine Specific [place] 1.025 H 1.016-1.022 Urine Protein NEGATIVE NEGATIVE Urine Glucose (UA) NEGATIVE NEGATIVE Urine Ketones NEGATIVE NEGATIVE Urine Nitrite NEGATIVE NEGATIVE Urine Bilirubin NEGATIVE NEGATIVE Urine Urobilinogen 0.2 < = 1.0 MG/DL Urine Leukocyte Esterase NEGATIVE NEGATIVE Urine RBC (Auto) NEGATIVE NEGATIVE Urine RBC NONE /HPF Urine WBC NONE /HPF Urine Crystals NONE /LPF Urine Bacteria NEGATIVE /HPF Urine Casts NONE /LPF Urine Mucus NEGATIVE /LPF Urine Culture Indicated NO My Orders Orders - JAIRO ACEVEDO MD Ed Iv/Invasive Line Start (09/15/22 22:44) Fecal Occult Bedside (09/15/22 22:44) Cbc With Automated Diff (09/15/22 22:44) Comprehensive Metabolic Panel (09/15/22 22:44) Hs C Reactive Protein (09/15/22 22:44) Ns Iv 1000 Ml (Sodium Chloride 0.9%) (09/15/22 22:44) Ua Culture If Indicated (09/15/22 23:23) Vital Signs/I&O 09/15/22 22:06 Pulse 72 Resp 17 B/P (MAP) 158/94 (115) Blood Pressure Mean: 115 Fecal Occult: Positive Progress Progress Note : Progress Note Seen and evaluated. IV, labs including CBC, CMP and CRP and UA ordered. Normal saline 1 L bolus. Rectal exam with Hemoccult done and this was trace positive. Monitor patient. Differential diagnosis includes internal or external hemorrhoids, lower GI bleed, bowel disorder 2333: CBC normal. CMP grossly normal except for slight elevation in LFTs which is consistent with previous lab results. CRP is negative. UA is pending. CT abdomen and pelvis considered but we will hold on that at this point given that laboratory function is relatively normal. This was discussed with the patient. He would benefit from colonoscopy and I have discussed this with him to pursue on an outpatient basis especially since he is not having persistent bloody stools and his labs are normal. We will see what UA shows. I will give him information for Dr. Escudero and send a copy of the chart to him for further evaluation. Patient will call his office for appointment. Monitor patient. 0 010: UA shows slight concentration but otherwise negative. No indication for admission or further imaging at this point. All findings and concerns were discussed with with the patient. Discharged home with return precautions. Patient verbalized understanding of instructions and agreement with plan. Departure Impression Primary Impression: Bloody stool Disposition: 01 HOME, SELF-CARE Condition: Improved Departure-Patient Inst. Decision time for Depature: 23:35 Referrals: CRISTIAN ESCUDERO,LOCAL PHYSICIAN (PCP) Primary Care Physician Patient Instructions: Bloody Stools, Adult (DC) Add. Discharge Instructions: All discharge instructions reviewed with patient and/or family. Voiced understanding. It is very important that you call surgeon listed or of your choosing to set up appointment for recheck and further evaluation including possible colonoscopy (scope) if indicated. Return for worse pain, fever, vomiting, persistent bloody stools, weakness, breathing problems or other concerns as needed. Copy Copies To 1: CRISTIAN ESCUDERO TIMOTHY D MD Sep 15, 2022 22:52
[2022-09-15 22:58] LABS: BASOPHILS # (AUTO) 0.1 10^3/uL (0.0-0.1); BASOPHILS % (AUTO) 1 % (0-10); EOSINOPHILS # (AUTO) 0.2 10^3/uL (0.0-0.3); EOSINOPHILS % (AUTO) 3 % (0-10); HEMATOCRIT 43 % (40-54); HEMOGLOBIN 15.6 g/dL (13.3-17.7); LYMPHOCYTES # (AUTO) 3.5 10^3/uL (1.0-4.0); LYMPHOCYTES % (AUTO) 49 % (12-44); MEAN CORPUSCULAR HEMOGLOBIN 31 pg (25-34); MEAN CORPUSCULAR HGB CONC 36 g/dL (32-36); MEAN CORPUSCULAR VOLUME 84 fL (80-99); MEAN PLATELET VOLUME 10.1 fL (9.0-12.2); MONOCYTES # (AUTO) 0.5 10^3/uL (0.0-1.0); MONOCYTES % (AUTO) 7 % (0-12); NEUTROPHILS # (AUTO) 2.8 10^3/uL (1.8-7.8); NEUTROPHILS % (AUTO) 40 % (42-75); PLATELET COUNT 214 10^3/uL (130-400)
[2022-09-15 23:08] LABS: ALBUMIN 4.7 GM/DL (3.2-4.5); CHLORIDE 106 MMOL/L (98-107); SODIUM 139 MMOL/L (135-145)
[2022-09-15 23:10] LABS: CALCIUM 9.6 MG/DL (8.5-10.1)
[2022-09-15 23:11] LABS: GLUCOSE 96 MG/DL (70-105); TOTAL PROTEIN 7.7 GM/DL (6.4-8.2)
[2022-09-15 23:12] LABS: CARBON DIOXIDE 24 MMOL/L (21-32)
[2022-09-15 23:13] LABS: BILIRUBIN,TOTAL 0.6 MG/DL (0.1-1.0)
[2022-09-15 23:14] LABS: ALKALINE PHOSPHATASE 57 U/L (40-136)
[2022-09-15 23:15] LABS: CREATININE SERUM 1.18 MG/DL (0.60-1.30); GFR ESTIMATED 88
[2022-09-15 23:16] LABS: BUN/CREATININE RATIO 14
[2022-09-15 23:17] LABS: ALANINE AMINOTRANSFERASE 156 U/L (0-55)
[2022-09-15 23:36] LABS: BILIRUBIN,URINE NEGATIVE (NEGATIVE); CLARITY,URINE CLEAR; COLOR,URINE YELLOW; GLUCOSE, URINE (UA) NEGATIVE (NEGATIVE); KETONES,URINE NEGATIVE (NEGATIVE); LEUKOCYTE ESTERASE ,URINE NEGATIVE (NEGATIVE); NITRITE,URINE NEGATIVE (NEGATIVE); PROTEIN,URINE NEGATIVE (NEGATIVE)
[2022-09-15 23:49] LABS: BACTERIA,URINE NEGATIVE /HPF
[2022-09-16 00:16] VITALS: BP 142/89
== END 2022-09-16 00:17 | disposition home or self-care (01) ==
LOC: EDUNIT# 21:56 → ER 21:59
DX: K92.1 Melena (principal); Z87.891 Personal history of nicotine dependence
CPT/HCPCS: 36415; 80053; 81000; 82274; 85025; 86141